=== PATIENT | female | born 1940 | race Caucasian/White ===

== ENCOUNTER 2016-09-21 10:52 | Inpatient (IN) | payer MEDICARE, MEDICAID ==
[~2016-09-21] VITALS: Ht 152.4 cm; Wt 61.7 kg
[~2016-09-21 10:52] MED LIST: ALEN70SO3 PO; ASPI-1079 PO; ATOR10TA PO; ATOR10TA69 PO; BENA5TAB3 PO; CALC-30 PO; GABA300S PO; MELO-106 PO; PANT40TA4 PO
[2016-09-21] MEDS ORDERED: SODIUM CHLORIDE 0.9% 1,000 ML IV ONE (11:08)
[2016-09-21 11:28] LABS: BASOPHILS % 0.5 % (0.0-2.0); EOSINOPHILS % 2.1 % (0.0-5.0); HEMATOCRIT. 34.7 % (36.0-48.0); HEMOGLOBIN. 11.9 g/dL (12.0-16.0); LYMPHOCYTES % 25.6 % (20.0-50.0); MEAN CORPUSCULAR HEMOGLOBIN 30.3 pg (28.0-32.0); MEAN CORPUSCULAR VOLUME 88.5 fL (81.0-99.0); MEAN PLATELET VOLUME 10.2 fl (7.4-10.4); NEUTROPHILS % 66.8 % (40.0-76.0); PLATELET 176 x1000/uL (130-400); RED BLOOD CELL COUNT 3.91 mill/uL (4.2-5.4); RED CELL DISTRIBUTION WIDTH 13.1 % (11.6-14.6)
[2016-09-21 11:46] LABS: CARBON DIOXIDE 25 mEq/L (21-32); CHLORIDE 106 mEq/L (98-107)
[2016-09-21 11:48] LABS: CREATINE KINASE MB FRACTION < 0.5 ng/mL (0.5-3.6); TROPONIN I 0.02 ng/mL (0.00-0.04)
[2016-09-21] MEDS ORDERED: ASPIRIN 81MG TABLET PO ONE (12:00)
[2016-09-21] MEDS ORDERED: LEVOFLOXACIN 750MG PREMIX 150 ML IV ONE (12:00)
[2016-09-21] MEDS ORDERED: SODIUM CHLORIDE 0.9% 1000ML BAG (SEPSIS BOLUS) IV ONE (12:00)
[2016-09-21] MEDS ORDERED: ACETAMINOPHEN 325MG TABLET PO PRN (14:00)
[2016-09-21] MEDS ORDERED: IPRATROPIUM/ALBUTEROL 0.5-3(2.5)MG/3ML NEB INH PRN (14:00)
[2016-09-21] MEDS ORDERED: ONDANSETRON HCL 4MG/2ML VIAL IV PRN (14:00)
[2016-09-21] MEDS ORDERED: HYDROCODONE/ACETAMINOPHEN 5/325MG TABLET PO PRN (14:00)
[2016-09-21] MEDS ORDERED: DIPHENHYDRAMINE 50MG/ML VIAL IV PRN (14:00)
[2016-09-21] MEDS ORDERED: CLONIDINE 0.1MG TABLET PO PRN (14:00)
[2016-09-21 14:30] LABS: CLARITY URINE CLEAR (CLEAR); COLOR URINE YELLOW (YELLOW); KETONES URINE NEGATIVE (NEGATIVE); LEUKOCYTE ESTERASE URINE NEGATIVE (NEGATIVE); NITRITE URINE NEGATIVE (NEGATIVE); OCCULT BLOOD URINE TRACE (NEGATIVE); PH URINE 5.5 (4.5-8.0); PROTEIN URINE NEGATIVE (NEGATIVE); SPECIFIC GRAVITY URINE 1.008 (1.005-1.030); UROBILINOGEN URINE 0.2 E.U./dL (0.2-1.0)
[2016-09-21] MEDS ORDERED: SUCR1ORA PO (16:12)
[2016-09-21] MEDS ORDERED: OMEP40CA34 PO (16:12)
[2016-09-21] MEDS ORDERED: FOLI-43 PO (16:12)
[2016-09-21] MEDS ORDERED: ATOR20TA65 PO (16:12)
[2016-09-21] MEDS ORDERED: FERROUS SULFATE (16:12)
[2016-09-21] MEDS ORDERED: OYSTER SHELL (16:12)
[2016-09-21] MEDS: IPRATROPIUM/ALBUTEROL 0.5-3(2.5)MG/3ML NEB INH SCH ×3 (16:49→22:21)
[2016-09-21] MEDS ORDERED: DEXTROSE 50% WATER 50ML SYRINGE IV PRN (18:30)
[2016-09-21] MEDS ORDERED: MELOXICAM 7.5MG TABLET PO PRN (18:45)
[2016-09-21] MEDS: BLOOD SUGAR DIAGNOSTIC STRIP TEST SCH (20:41)
[2016-09-21] MEDS: ATORVASTATIN CALCIUM 20MG TABLET PO SCH (20:42)
[2016-09-21] MEDS: INSULIN LISPRO 100 UNITS/ML SUBCUT SCH (23:00)
[2016-09-22] MEDS: IPRATROPIUM/ALBUTEROL 0.5-3(2.5)MG/3ML NEB INH SCH ×4 (00:40→21:19)
[2016-09-22 06:29] LABS: BASOPHILS % 0.4 % (0.0-2.0); EOSINOPHILS % 0.2 % (0.0-5.0); HEMOGLOBIN. 10.3 g/dL (12.0-16.0); LYMPHOCYTES % 16.4 % (20.0-50.0); MEAN CORPUSCULAR HEMOGLOBIN 29.9 pg (28.0-32.0); MEAN PLATELET VOLUME 10.4 fl (7.4-10.4); MONOCYTES % 10.4 % (2.0-8.0); NEUTROPHILS % 72.6 % (40.0-76.0); PLATELET 164 x1000/uL (130-400); RED BLOOD CELL COUNT 3.45 mill/uL (4.2-5.4); RED CELL DISTRIBUTION WIDTH 13.3 % (11.6-14.6)
[2016-09-22] MEDS: BLOOD SUGAR DIAGNOSTIC STRIP TEST SCH ×4 (06:32→21:05)
[2016-09-22] MEDS: SUCRALFATE 1 G/10 ML UDC PO SCH ×3 (06:48→17:16)
[2016-09-22] MEDS: INSULIN LISPRO 100 UNITS/ML SUBCUT SCH ×4 (06:49→21:47)
[2016-09-22] MEDS: OMEPRAZOLE 20MG CAPSULE EXTENDED RELEASE PO SCH (06:49)
[2016-09-22 06:55] LABS: CARBON DIOXIDE 25 mEq/L (21-32); CHLORIDE 107 mEq/L (98-107); HDL CHOLESTEROL 51 mg/dL (40-59); LDL CHOLESTEROL 49 mg/dL (5-100)
[2016-09-22] MEDS: ASPIRIN 81MG TABLET PO SCH (08:20)
[2016-09-22] MEDS: FOLIC ACID 1MG TABLET PO SCH (08:20)
[2016-09-22] MEDS: ENOXAPARIN 30MG/0.3ML SYR SUBCUT SCH (08:20)
[2016-09-22] MEDS ORDERED: MEDICATION NOT ON FORMULARY EA (Omeprazole 1 CAP) PO SCH (09:00)
[2016-09-22] MEDS ORDERED: MEDICATION NOT ON FORMULARY EA (Meloxicam 1 TAB) PO SCH (09:00)
[2016-09-22] MEDS ORDERED: SUCRALFATE 1 G/10 ML UDC PO SCH (09:00)
[2016-09-22] MEDS ORDERED: LEVOFLOXACIN 250MG PREMIX 50 ML IV SCH (11:00)
[2016-09-22] MEDS: ATORVASTATIN CALCIUM 20MG TABLET PO SCH (21:45)
[2016-09-22] MEDS: INSULIN DETEMIR UD 100 UNITS/ML SYR SUBCUT SCH (21:48)
[2016-09-23] MEDS: IPRATROPIUM/ALBUTEROL 0.5-3(2.5)MG/3ML NEB INH SCH ×4 (02:38→21:20)
[2016-09-23] MEDS: BLOOD SUGAR DIAGNOSTIC STRIP TEST SCH ×4 (06:29→20:27)
[2016-09-23] MEDS: SUCRALFATE 1 G/10 ML UDC PO SCH ×3 (06:38→16:45)
[2016-09-23] MEDS: OMEPRAZOLE 20MG CAPSULE EXTENDED RELEASE PO SCH (06:38)
[2016-09-23] MEDS: INSULIN LISPRO 100 UNITS/ML SUBCUT SCH ×4 (06:45→20:27)
[2016-09-23 07:38] LABS: BASOPHILS % 0.7 % (0.0-2.0); EOSINOPHILS % 2.9 % (0.0-5.0); HEMATOCRIT. 32.7 % (36.0-48.0); LYMPHOCYTES % 26.8 % (20.0-50.0); MEAN CORPUSCULAR HEMOGLOBIN 30.1 pg (28.0-32.0); MEAN CORPUSCULAR VOLUME 89.6 fL (81.0-99.0); MEAN PLATELET VOLUME 11.1 fl (7.4-10.4); MONOCYTES % 6.6 % (2.0-8.0); PLATELET 169 x1000/uL (130-400); RED BLOOD CELL COUNT 3.64 mill/uL (4.2-5.4)
[2016-09-23 08:09] LABS: CHLORIDE 107 mEq/L (98-107)
[2016-09-23 08:23] LABS: CARBON DIOXIDE 25 mEq/L (21-32)
[2016-09-23] MEDS: FOLIC ACID 1MG TABLET PO SCH (09:03)
[2016-09-23] MEDS: ASPIRIN 81MG TABLET PO SCH (09:03)
[2016-09-23] MEDS: ENOXAPARIN 30MG/0.3ML SYR SUBCUT SCH (09:04)
[2016-09-23] MEDS: INSULIN DETEMIR UD 100 UNITS/ML SYR SUBCUT SCH ×2 (11:50→21:16)
[2016-09-23] MEDS ORDERED: LEVOFLOXACIN 250MG PREMIX 50 ML IV SCH (13:00)
[2016-09-23] MEDS: ATORVASTATIN CALCIUM 20MG TABLET PO SCH (21:11)
[2016-09-24] MEDS: IPRATROPIUM/ALBUTEROL 0.5-3(2.5)MG/3ML NEB INH SCH ×2 (01:52→08:42)
[2016-09-24] MEDS: BLOOD SUGAR DIAGNOSTIC STRIP TEST SCH (06:22)
[2016-09-24] MEDS: SUCRALFATE 1 G/10 ML UDC PO SCH (06:26)
[2016-09-24] MEDS: OMEPRAZOLE 20MG CAPSULE EXTENDED RELEASE PO SCH (06:26)
[2016-09-24] MEDS: INSULIN LISPRO 100 UNITS/ML SUBCUT SCH (06:32)
[2016-09-24 07:33] LABS: BASOPHILS % 0.8 % (0.0-2.0); CHLORIDE 106 mEq/L (98-107); EOSINOPHILS % 2.9 % (0.0-5.0); HEMATOCRIT. 32.9 % (36.0-48.0); LYMPHOCYTES % 24.7 % (20.0-50.0); MEAN CORPUSCULAR HEMOGLOBIN 30.3 pg (28.0-32.0); MEAN CORPUSCULAR VOLUME 90.3 fL (81.0-99.0); MEAN PLATELET VOLUME 10.4 fl (7.4-10.4); MONOCYTES % 7.1 % (2.0-8.0); NEUTROPHILS % 64.5 % (40.0-76.0); PLATELET 156 x1000/uL (130-400); RED BLOOD CELL COUNT 3.64 mill/uL (4.2-5.4); RED CELL DISTRIBUTION WIDTH 13.4 % (11.6-14.6)
[2016-09-24 07:47] LABS: CARBON DIOXIDE 26 mEq/L (21-32)
[2016-09-24] MEDS ORDERED: ENOXAPARIN 40MG/0.4ML SYR SUBCUT SCH (09:00)
[2016-09-24] MEDS: ASPIRIN 81MG TABLET PO SCH (10:20)
[2016-09-24] MEDS: FOLIC ACID 1MG TABLET PO SCH (10:21)
[2016-09-24] MEDS: INSULIN DETEMIR UD 100 UNITS/ML SYR SUBCUT SCH (10:29)
[2016-09-24 12:00] VITALS: BP 113/75
== END 2016-09-24 13:17 | disposition home or self-care (01) | DRG 74 ==
LOC: ER 11:03 → 5WST 12:26 → EDBEDREQTM 12:30 → EDBEDREQ 12:30 → ENRESERV 13:19
PROVIDERS: ADMIT Internal Medicine; ATTEND Internal Medicine
DX: G90.8 Other disorders of autonomic nervous system (principal); E44.0 Moderate protein-calorie malnutrition; E11.51 Type 2 diabetes mellitus with diabetic peripheral angiopathy without gangrene; E11.649 Type 2 diabetes mellitus with hypoglycemia without coma; R55 Syncope and collapse; D64.9 Anemia, unspecified; R91.8 Other nonspecific abnormal finding of lung field; E78.5 Hyperlipidemia, unspecified; E87.6 Hypokalemia; I10 Essential (primary) hypertension; I25.10 Atherosclerotic heart disease of native coronary artery without angina pectoris; Z79.82 Long term (current) use of aspirin; Z79.899 Other long term (current) drug therapy; Z97.0 Presence of artificial eye; Z68.26 Body mass index [BMI] 26.0-26.9, adult
CPT/HCPCS: 36415; 70450; 71010; 71250; 80048; 80053; 80061; 81001; 82553; 82962; 83605; 84484; 85025; 87040; 87086; 93005; 93306; 93880; 94640; 94664; 96361; 96365; 97162; 99285; J1650; J1815; J1956; J7030; J7620

== ENCOUNTER 2018-01-24 12:07 | Emergency (ER) | payer MEDICARE, MEDICAID ==
[~2018-01-24] VITALS: Ht 149.9 cm; Wt 60.0 kg
[~2018-01-24 12:07] MED LIST changes: -ATOR10TA PO; -ATOR10TA69 PO; +ATOR20TA65 PO; -BENA5TAB3 PO; +BENA5TAB6 PO; -CALC-30 PO; +FERROUS SULFATE; +FOLI-43 PO; +OMEP40CA34 PO; +OYSTER SHELL; -PANT40TA4 PO; +SUCR1ORA PO
[2018-01-24] MEDS ORDERED: ACETAMINOPHEN 325MG TABLET PO ONE (13:00)
[2018-01-24 16:08] VITALS: BP 110/55
== END 2018-01-24 16:10 | disposition home or self-care (01) ==
LOC: ER 12:49
DX: S52.202A Unspecified fracture of shaft of left ulna, initial encounter for closed fracture (principal); E11.9 Type 2 diabetes mellitus without complications; I10 Essential (primary) hypertension; I25.10 Atherosclerotic heart disease of native coronary artery without angina pectoris; W01.0XXA Fall on same level from slipping, tripping and stumbling without subsequent striking against object, initial encounter; Y93.89 Activity, other specified; Y92.89 Other specified places as the place of occurrence of the external cause; Y99.8 Other external cause status
CPT/HCPCS: 29125; 73080; 73090; 73110; 73130; 99283

== ENCOUNTER 2018-10-10 15:25 | Emergency (ER) | payer MEDICARE, MEDICAID ==
[~2018-10-10] VITALS: Ht 152.4 cm; Wt 57.0 kg
[2018-10-10 20:45] VITALS: BP 147/61
== END 2018-10-10 20:40 | disposition home or self-care (01) ==
LOC: ER 15:25
DX: M25.572 Pain in left ankle and joints of left foot (principal); I25.10 Atherosclerotic heart disease of native coronary artery without angina pectoris; I10 Essential (primary) hypertension; E11.9 Type 2 diabetes mellitus without complications; Z98.890 Other specified postprocedural states; Z79.82 Long term (current) use of aspirin; W10.8XXA Fall (on) (from) other stairs and steps, initial encounter; Y93.89 Activity, other specified; Y92.018 Other place in single-family (private) house as the place of occurrence of the external cause
CPT/HCPCS: 29515; 73610; 73630; 99283